=== PATIENT | male | born 1970 | race American Indian/Alaskan Native ===

== ENCOUNTER 2023-03-09 00:06 | Emergency (ER) | payer OTHER ==
[~2023-03-09] VITALS: Ht 170.2 cm; Wt 113.0 kg
[2023-03-09 01:32] LABS: Basophils # (auto) 0 10 ^3/uL (0-0.2); Basophils % (auto) 0.4 % (0.0-2.0); Eosinophils # (auto) 0.3 10 ^3/uL (0-0.8); Eosinophils % (auto) 3.1 % (0.0-7.0); Hematocrit 47.1 % (41.0-53.0); Hemoglobin 15.8 g/dL (13.5-17.5); Lymphocytes # (auto) 2.6 10 ^3/uL (0.4-5.4); Lymphocytes % (auto) 27.2 % (10.0-50.0); Mean Corpuscular Hemoglobin 31.9 pg (28.0-32.0); Mean Corpuscular Hgb Conc. 33.5 g/dL (32.0-36.0); Mean Corpuscular Volume 95.1 fL (80.0-100.0); Monocytes # (auto) 0.9 10 ^3/uL (0-1.3); Monocytes % (auto) 9.7 % (0.0-12.0); Neutrophils # (auto) 5.7 10 ^3/uL (1.6-8.6); Neutrophils % (auto) 59.6 % (37.0-80.0); Red Blood Cells 4.96 10^6/uL (4.5-5.90); White Blood Cell 9.6 10^3/uL (4.4-10.8)
[2023-03-09 01:41] LABS: Chloride 102 mmol/L (98-107); Potassium 3.5 mmol/L (3.5-5.1); Sodium 137 mmol/L (136-145)
[2023-03-09 01:42] LABS: Anion Gap 11 (5-15); Carbon Dioxide 24 mmol/L (20-30)
[2023-03-09 01:43] LABS: Calcium 9.1 mg/dL (8.7-10.4)
[2023-03-09 01:47] LABS: BUN/Creatinine Ratio 12.5 (10.0-20.0); Blood Urea Nitrogen 16 mg/dL (9-23); Glucose 121 mg/dL (74-106)
[2023-03-09 01:56] LABS: Lipase 1362 U/L (12-53)
[2023-03-09] MEDS ORDERED: LACT10SO3 PO (02:17)
[2023-03-09 02:26] VITALS: BP 140/94; PULSE 88; RESP 16; TEMP 98; O2SAT 94
[2023-03-09] MEDS ORDERED: LACTULOSE 20Gm/30ML SOLN PO ONE (02:30)
[2023-03-09 03:46] LABS: Urine Bacteria FEW /hpf (None Seen); Urine Blood Negative /uL (Negative); Urine Clarity Clear (Clear); Urine Color Yellow (Yellow); Urine Protein, UAD Negative (Negative); Urine Specific Gravity 1.021 (1.001-1.035); Urine Urobilinogen Normal (Negative); Urine WBC 1 /hpf (0 - 3)
== END 2023-03-09 02:32 | disposition home or self-care (01) ==
LOC: ER 00:06
DX: K59.00 Constipation, unspecified (principal)
CPT/HCPCS: 36415; 74018; 80048; 81001; 83690; 85025

== ENCOUNTER 2023-09-15 12:09 | Emergency (ER) | payer OTHER ==
[~2023-09-15] VITALS: Ht 170.2 cm; Wt 123.1 kg
[~2023-09-15 12:09] MED LIST: LACT10SO3 PO
[2023-09-15 13:07] VITALS: BP 150/91; PULSE 62; RESP 16; TEMP 97.8; O2SAT 97
[2023-09-15] MEDS: KETOROLAC TROMETH 60MG/2ML VIAL IM ONE (13:50)
[2023-09-15] MEDS: HYDROcodone-ACET 5/325MG TAB PO ONE (13:50)
[2023-09-15] MEDS ORDERED: COLC1CAP PO (14:11)
[2023-09-15] MEDS ORDERED: TRAM-626 PO ×2 (14:11→14:12)
== END 2023-09-15 14:20 | disposition home or self-care (01) ==
LOC: ER 12:09
DX: M10.9 Gout, unspecified (principal)
CPT/HCPCS: 96372; 99283; J1885